=== PATIENT | male | born 1970 | race Caucasian/White ===

== ENCOUNTER 2020-02-21 08:10 | Outpatient (CLI) | payer BC ==
--- NOTE | 2020-02-21 09:19 | CT ---
CT of the abdomen: 02/21/2020 COMPARISON: None HISTORY: Acute abdominal pain TECHNIQUE: Axial CT imaging at 5 mm intervals through the abdomen with IV and oral contrast. Coronal and sagittal reformatted imaging obtained. FINDINGS: The pelvis is not imaged on this exam. The visualized lung bases appear unremarkable. The liver, gallbladder, and spleen demonstrate no acute findings. There is a tiny hypodense lesion wi thin the posterior aspect of the spleen measuring 6 mm, too small to characterize and of doubtful clinical significance. The pancreas and adrenal glands appear grossly unremarkable. There is a 4 mm n onobstructing stone in the lower pole of the left kidney. There is a tiny hypodense lesion in the midpole of the right kidney anteriorly measuring 8 mm, too small to characterize. Vascular structures of the abdomen appear patent. No abdominal lymphadenopathy. There is disc space narrowing with disc bulge at the lumbosacral junction. No worrisome osseous abnormality. IMPRESSION: No acute findings. Nonobstructing 4 mm lower pole left renal calculus. Additional inciden singh findings as detailed above. Of note, the pelvis was not imaged on this exam.
== END 2020-02-21 08:11 | disposition home or self-care (01) ==
LOC: SCSCT 08:10
PROVIDERS: ATTEND Nurse Practitioner Family
DX: R10.0 Acute abdomen (principal); N20.0 Calculus of kidney; D73.89 Other diseases of spleen; M48.07 Spinal stenosis, lumbosacral region; M51.87 Other intervertebral disc disorders, lumbosacral region
CPT/HCPCS: 74160